=== PATIENT | male | born 1985 | race Caucasian/White ===

== ENCOUNTER → 2016-11-16 | Outpatient (CLI) | payer OTHER | END | disposition home or self-care (01) | LOC: CFH 15:25 | PROVIDERS: ATTEND Family Medicine | DX: M51.37 Other intervertebral disc degeneration, lumbosacral region (principal); M41.85 Other forms of scoliosis, thoracolumbar region; M47.897 Other spondylosis, lumbosacral region; M54.2 Cervicalgia | CPT/HCPCS: 72040; 72072; 72100 ==

== ENCOUNTER → 2018-02-16 | Outpatient (CLI) | payer OTHER ==
[~2018-02-16] MED LIST: CEFAZOLIN 1,000 MG ONE; DEXAMETHASONE 4 MG/ML, 1ML ONE; DEXL60CA2 PO; FENTANYL PF 100 MCG/2ML ONE; OMEP-110 PO; ONDANSETRON 2MG/ML, 2ML ONE; PROPOFOL 10 MG/ML, 20ML ONE
== END | disposition home or self-care (01) ==
LOC: STAR 13:53
PROVIDERS: ATTEND Internal Medicine
DX: Z02.9 Encounter for administrative examinations, unspecified (principal)

== ENCOUNTER 2018-02-21 07:57 | Day surgery (SDC) | payer OTHER ==
[~2018-02-21] VITALS: Ht 175.3 cm; Wt 98.3 kg
[~2018-02-21 07:57] MED LIST changes: -CEFAZOLIN 1,000 MG ONE; -DEXAMETHASONE 4 MG/ML, 1ML ONE; -FENTANYL PF 100 MCG/2ML ONE; -OMEP-110 PO; -ONDANSETRON 2MG/ML, 2ML ONE; -PROPOFOL 10 MG/ML, 20ML ONE
[2018-02-21 08:16] VITALS: BP 121/76
[2018-02-21] MEDS ORDERED: OMEP-110 PO (08:20)
[2018-02-21] MEDS ORDERED: LACTATED RINGERS 1,000 ML IV SCH (08:20)
[2018-02-21] MEDS ORDERED: ONDANSETRON 2MG/ML, 2ML ONE (08:52)
[2018-02-21] MEDS ORDERED: PROPOFOL 10 MG/ML, 20ML ONE (08:52)
[2018-02-21] MEDS ORDERED: DEXAMETHASONE 4 MG/ML, 1ML ONE (08:52)
[2018-02-21] MEDS ORDERED: hydrALAzine 20 MG/ML, 1ML IV PRN (09:30)
[2018-02-21] MEDS ORDERED: HYDROmorphone 1 MG/ML, 1ML IV PRN (09:30)
[2018-02-21] MEDS ORDERED: LABETALOL 5MG/ML, 20ML IV PRN (09:30)
[2018-02-21] MEDS ORDERED: FENTANYL PF 100 MCG/2ML IV PRN (09:30)
[2018-02-21] MEDS ORDERED: OXYcodone 5 MG/5 ML ORAL.SOL UDC PO PRN (09:30)
[2018-02-21] MEDS ORDERED: ONDANSETRON 2MG/ML, 2ML IV PRN (09:30)
[2018-02-21] MEDS ORDERED: ACETAMINOPHEN 325 MG TABLET PO PRN (09:30)
[2018-02-21] MEDS ORDERED: ACETAMINOPHEN 650 MG/20.3 ML UDC ONE (10:13)
== END 2018-02-21 11:37 | disposition home or self-care (01) ==
LOC: OUT 07:57
PROVIDERS: ATTEND Internal Medicine
DX: C15.5 Malignant neoplasm of lower third of esophagus (principal); K22.711 Barrett's esophagus with high grade dysplasia; K44.9 Diaphragmatic hernia without obstruction or gangrene; K29.70 Gastritis, unspecified, without bleeding; K21.9 Gastro-esophageal reflux disease without esophagitis; M51.36 Other intervertebral disc degeneration, lumbar region; Z87.891 Personal history of nicotine dependence; Z87.39 Personal history of other diseases of the musculoskeletal system and connective tissue; Z79.899 Other long term (current) drug therapy; Z98.890 Other specified postprocedural states
CPT/HCPCS: 43239; 43270; 88305; J1100; J2405; J2704; J3010; J7120; J0690

== ENCOUNTER → 2018-03-06 | Outpatient (CLI) | payer OTHER ==
[~2018-03-06] VITALS: Ht 175.3 cm; Wt 96.8 kg
[~2018-03-06] MED LIST changes: +ACETAMINOPHEN 325 MG TABLET PO PRN; +ALBUTEROL SULFATE 2.5 MG/3 ML NPPB PRN; +DEXAMETHASONE 4 MG/ML, 1ML ONE; +EPHEDRINE 50 MG/ML, 1ML IVPush PRN; +FENTANYL PF 100 MCG/2ML IV PRN; +FENTANYL PF 100 MCG/2ML ONE; +LABETALOL 5MG/ML, 20ML IV PRN; +LACTATED RINGERS 1,000 ML IV SCH; +LIDOCAINE-MPF 1%, 2ML INFIL ONE; +MEPERIDINE/PF 25MG/0.5ML IVPush PRN; +METOPROLOL 1 MG/ML, 5ML IV PRN; +OMEP-110 PO; +ONDANSETRON 2MG/ML, 2ML IV PRN; +ONDANSETRON 2MG/ML, 2ML ONE; +OXYcodone 5 MG/5 ML ORAL.SOL UDC PO PRN; +PROPOFOL 10 MG/ML, 20ML ONE; +SUCCINYLCHOLINE 20 MG/ML, 10ML ONE; +hydrALAzine 20 MG/ML, 1ML IV PRN
[2018-03-06 12:16] VITALS: BP 117/81
== END | disposition home or self-care (01) ==
LOC: CLISVCS 09:00 → OUT 11:09 → EDSTATUS 15:00
PROVIDERS: ATTEND Internal Medicine
DX: C15.9 Malignant neoplasm of esophagus, unspecified (principal); Z53.8 Procedure and treatment not carried out for other reasons; K21.9 Gastro-esophageal reflux disease without esophagitis; Z98.890 Other specified postprocedural states; Z83.3 Family history of diabetes mellitus; Z87.891 Personal history of nicotine dependence
CPT/HCPCS: J1100; J2405; J2704; J3010; J0330; J7120

== ENCOUNTER → 2018-03-27 | Outpatient (CLI) | payer OTHER ==
[~2018-03-27] MED LIST changes: -ACETAMINOPHEN 325 MG TABLET PO PRN; -ALBUTEROL SULFATE 2.5 MG/3 ML NPPB PRN; -DEXAMETHASONE 4 MG/ML, 1ML ONE; -EPHEDRINE 50 MG/ML, 1ML IVPush PRN; -FENTANYL PF 100 MCG/2ML IV PRN; -FENTANYL PF 100 MCG/2ML ONE; -LABETALOL 5MG/ML, 20ML IV PRN; -LACTATED RINGERS 1,000 ML IV SCH; -LIDOCAINE-MPF 1%, 2ML INFIL ONE; -MEPERIDINE/PF 25MG/0.5ML IVPush PRN; -METOPROLOL 1 MG/ML, 5ML IV PRN; +OMNIPAQUE 350 MG/ML, 100ML BOTTLE ONE; -ONDANSETRON 2MG/ML, 2ML IV PRN; -ONDANSETRON 2MG/ML, 2ML ONE; -OXYcodone 5 MG/5 ML ORAL.SOL UDC PO PRN; -PROPOFOL 10 MG/ML, 20ML ONE; -SUCCINYLCHOLINE 20 MG/ML, 10ML ONE; -hydrALAzine 20 MG/ML, 1ML IV PRN
== END | disposition home or self-care (01) ==
LOC: CFH 11:59
PROVIDERS: ATTEND Nurse Practitioner Family
DX: R91.1 Solitary pulmonary nodule (principal); C15.9 Malignant neoplasm of esophagus, unspecified; Z87.891 Personal history of nicotine dependence
CPT/HCPCS: 71260; 74177; Q9967

== ENCOUNTER → 2018-04-11 | Outpatient (CLI) | payer OTHER ==
[~2018-04-11] MED LIST changes: -OMNIPAQUE 350 MG/ML, 100ML BOTTLE ONE
== END | disposition home or self-care (01) ==
LOC: STAR 10:35
PROVIDERS: ATTEND Internal Medicine
DX: Z02.9 Encounter for administrative examinations, unspecified (principal)

== ENCOUNTER 2018-04-17 05:34 | Day surgery (SDC) | payer OTHER ==
[~2018-04-17] VITALS: Ht 175.3 cm; Wt 97.2 kg
[2018-04-17] MEDS ORDERED: LACTATED RINGERS 1,000 ML IV SCH (06:13)
[2018-04-17 06:14] VITALS: BP 133/81
[2018-04-17] MEDS ORDERED: FENTANYL PF 100 MCG/2ML ONE (07:13)
[2018-04-17] MEDS ORDERED: MIDAZOLAM 1 MG/ML, 2ML ONE (07:13)
[2018-04-17] MEDS ORDERED: PROPOFOL 10 MG/ML, 20ML ONE (07:14)
[2018-04-17] MEDS ORDERED: ONDANSETRON 2MG/ML, 2ML ONE (07:14)
[2018-04-17] MEDS ORDERED: LABETALOL 5MG/ML, 20ML IV PRN (07:30)
[2018-04-17] MEDS ORDERED: MORPHINE SULFATE 4 MG/ML, 1ML IVPush PRN (07:30)
[2018-04-17] MEDS ORDERED: ACETAMINOPHEN 325 MG TABLET PO PRN (07:30)
[2018-04-17] MEDS ORDERED: EPHEDRINE 50 MG/ML, 1ML IVPush PRN (07:30)
[2018-04-17] MEDS ORDERED: HYDROmorphone 1 MG/ML, 1ML IV PRN (07:30)
[2018-04-17] MEDS ORDERED: ALBUTEROL SULFATE 2.5 MG/3 ML NPPB PRN (07:30)
[2018-04-17] MEDS ORDERED: OXYcodone 5 MG/5 ML ORAL.SOL UDC PO PRN (07:30)
[2018-04-17] MEDS ORDERED: MEPERIDINE/PF 25MG/0.5ML IVPush PRN (07:30)
[2018-04-17] MEDS ORDERED: PROCHLORPERAZINE 5 MG/ML, 2ML IV PRN (07:30)
[2018-04-17] MEDS ORDERED: hydrALAzine 20 MG/ML, 1ML IV PRN (07:30)
[2018-04-17] MEDS ORDERED: FENTANYL PF 100 MCG/2ML IV PRN (07:30)
[2018-04-17] MEDS ORDERED: MIDAZOLAM 1 MG/ML, 2ML IV PRN (07:30)
[2018-04-17] MEDS ORDERED: LORazepam 2 MG/ML, 1ML IVPush PRN (07:30)
[2018-04-17] MEDS ORDERED: METOPROLOL 1 MG/ML, 5ML IV PRN (07:30)
[2018-04-17] MEDS ORDERED: SUCCINYLCHOLINE 20 MG/ML, 10ML ONE (07:52)
[2018-04-17] MEDS ORDERED: EPHEDRINE 50 MG/ML, 1ML ONE (07:52)
[2018-04-17] MEDS ORDERED: DEXAMETHASONE 4 MG/ML, 1ML ONE (07:52)
== END 2018-04-17 10:30 | disposition home or self-care (01) ==
LOC: OUT 05:34
PROVIDERS: ATTEND Internal Medicine
DX: C15.5 Malignant neoplasm of lower third of esophagus (principal); K21.9 Gastro-esophageal reflux disease without esophagitis; K22.70 Barrett's esophagus without dysplasia; Z72.89 Other problems related to lifestyle
CPT/HCPCS: 43238; 88172; 88173; 88177; 88305; J0330; J1100; J2250; J2405; J2704; J3010; J7120

== ENCOUNTER → 2018-05-08 | Outpatient (CLI) | payer OTHER | END | disposition home or self-care (01) | LOC: ROC 07:57 | PROVIDERS: ATTEND Radiology Radiation Oncology | DX: C15.9 Malignant neoplasm of esophagus, unspecified (principal) | CPT/HCPCS: 99214; G0463 ==

== ENCOUNTER → 2018-05-11 | Outpatient (CLI) | payer OTHER | END | disposition home or self-care (01) | LOC: PETCFH 09:17 | PROVIDERS: ATTEND Internal Medicine Hematology & Oncology | DX: R91.1 Solitary pulmonary nodule (principal); C15.9 Malignant neoplasm of esophagus, unspecified | CPT/HCPCS: 78815; A9552 ==

== ENCOUNTER 2018-05-16 11:25 | Day surgery (SDC) | payer OTHER ==
[~2018-05-16] VITALS: Ht 175.3 cm; Wt 95.5 kg
[2018-05-16] MEDS ORDERED: SODIUM CHLORIDE 0.9% 1,000 ML IV SCH (11:47)
[2018-05-16 12:00] VITALS: BP 121/73
[2018-05-16] MEDS ORDERED: CEFAZOLIN PMX 1GM/50ML 50 ML IV ONE (12:00)
[2018-05-16] MEDS ORDERED: PLEASE ENTER HEIGHT AND WEIGHT MC SCH (12:00)
[2018-05-16] MEDS ORDERED: CEFAZOLIN PMX 1GM/50ML 50 ML ONE (12:02)
[2018-05-16] MEDS ORDERED: LIDOCAINE/PF 1%, 30ML ONE (12:28)
[2018-05-16] MEDS ORDERED: FLUMAZENIL 0.1 MG/1 ML, 5ML ONE (12:42)
[2018-05-16] MEDS ORDERED: FENTANYL PF 100 MCG/2ML ONE (12:42)
[2018-05-16] MEDS ORDERED: MIDAZOLAM 1 MG/ML, 5ML ONE (12:42)
[2018-05-16] MEDS ORDERED: NALOXONE 1 MG/ML, 2ML ONE (12:43)
== END 2018-05-16 15:30 | disposition home or self-care (01) ==
LOC: OUT 11:25
PROVIDERS: ATTEND Internal Medicine Hematology & Oncology
DX: Z45.2 Encounter for adjustment and management of vascular access device (principal); C15.9 Malignant neoplasm of esophagus, unspecified; K21.9 Gastro-esophageal reflux disease without esophagitis; Z87.891 Personal history of nicotine dependence
CPT/HCPCS: 36561; 76937; 77001; 99156; 99157; C1788; J0690; J1642; J2250; J3010; J3490; J7030; J2310

== ENCOUNTER → 2018-07-09 | Outpatient (CLI) | payer OTHER | END | disposition home or self-care (01) | LOC: EDSTATUS 07-08 12:44 → ROC 07:16 | PROVIDERS: ATTEND Radiology Radiation Oncology | DX: Z08 Encounter for follow-up examination after completed treatment for malignant neoplasm (principal); C15.5 Malignant neoplasm of lower third of esophagus | CPT/HCPCS: 99212; G0463 ==

== ENCOUNTER → 2018-08-03 | Outpatient (CLI) | payer OTHER | END | disposition home or self-care (01) | LOC: PETCFH 09:26 | PROVIDERS: ATTEND Surgery | DX: C15.9 Malignant neoplasm of esophagus, unspecified (principal) | CPT/HCPCS: 78815; A9552 ==

== ENCOUNTER 2018-08-15 06:00 | Inpatient (IN) | payer OTHER ==
[~2018-08-15] VITALS: Ht 175.3 cm; Wt 102.9 kg
[2018-08-15] MEDS ORDERED: LACTATED RINGERS 1,000 ML IV SCH (06:53)
[2018-08-15 06:57] VITALS: BP 135/85
[2018-08-15] MEDS ORDERED: BUPIVACAINE/PF-EPI 0.5% 1:200K ONE (07:13)
[2018-08-15] MEDS ORDERED: MIDAZOLAM 1 MG/ML, 2ML ONE (07:19)
[2018-08-15] MEDS ORDERED: FENTANYL PF 250 MCG/5ML ONE ×2 (07:19→09:21)
[2018-08-15 07:30] LABS: BASOPHILS # (AUTO) 0.03 x10^3/uL (0-0.1); BASOPHILS % (AUTO) 1 % (0-1); EOSINOPHILS % (AUTO) 4 % (1-7); LYMPHOCYTES # (AUTO) 0.68 x10^3/uL (1-3.4); LYMPHOCYTES % (AUTO) 15 % (22-44); MD NO; MEAN CORPUSCULAR HGB CONC 33.4 g/dL (33.2-36.2); MEAN CORPUSCULAR VOLUME 80.8 fL (81-97); MEAN PLATELET VOLUME 8.8 fL (7.4-10.4); MONOCYTES # (AUTO) 0.36 x10^3/uL (0.2-0.8); MONOCYTES % (AUTO) 8 % (2-9); NEUTROPHILS # (AUTO) 3.33 x10^3/uL (1.8-6.8); NEUTROPHILS % (AUTO) 72 % (42-75); PLATELET COUNT 123 x10^3/uL (130-400); RED CELL DISTRIBUTION WIDTH 15.1 % (9.4-14.8)
[2018-08-15] MEDS ORDERED: ONDANSETRON ODT 8 MG PO ONE (07:30)
[2018-08-15] MEDS ORDERED: GABAPENTIN 300 MG CAPSULE PO ONE (07:30)
[2018-08-15] MEDS ORDERED: ACETAMINOPHEN 500 MG TABLET PO ONE (07:30)
[2018-08-15] MEDS ORDERED: INDOCYANINE GREEN 25 MG VIAL ONE (07:32)
[2018-08-15 07:40] LABS: ALANINE AMINOTRANSFERASE 44 U/L (12-78); ALBUMIN 4.1 g/dL (3.4-5.0); ANION GAP 5 mmol/L (5-15); CALCIUM 9.5 mg/dL (8.5-10.1); CHLORIDE 106 mmol/L (98-107); CREATININE 1.03 mg/dL (0.7-1.3)
[2018-08-15 07:42] LABS: ALKALINE PHOSPHATASE 68 U/L (45-117); BILIRUBIN,TOTAL 0.6 mg/dL (0.2-1.0); TOTAL PROTEIN 7.5 g/dL (6.4-8.2)
[2018-08-15] MEDS ORDERED: MEPERIDINE/PF 25MG/0.5ML IVPush PRN (08:30)
[2018-08-15] MEDS ORDERED: HALOPERIDOL 5 MG/ML IV PRN (08:30)
[2018-08-15] MEDS ORDERED: hydrALAzine 20 MG/ML, 1ML IV PRN (08:30)
[2018-08-15] MEDS ORDERED: ONDANSETRON 2MG/ML, 2ML IV PRN (08:30)
[2018-08-15] MEDS ORDERED: LABETALOL 5MG/ML, 20ML IV PRN (08:30)
[2018-08-15] MEDS ORDERED: PROMETHAZINE 25 MG/ML, 1ML IV PRN (08:30)
[2018-08-15] MEDS ORDERED: DIAZEPAM 5 MG/ML, 2ML IVPush PRN (08:30)
[2018-08-15] MEDS ORDERED: CEFAZOLIN 1,000 MG ONE (09:23)
[2018-08-15] MEDS ORDERED: GLYCOPYRROLATE 0.2MG/1ML, 5ML ONE (09:23)
[2018-08-15] MEDS ORDERED: ROCURONIUM 10MG/ML,5ML ONE (09:23)
[2018-08-15] MEDS ORDERED: SUCCINYLCHOLINE 20 MG/ML, 10ML ONE (09:23)
[2018-08-15] MEDS ORDERED: DEXAMETHASONE 4 MG/ML, 1ML ONE (09:23)
[2018-08-15] MEDS ORDERED: NEOSTIGMINE 1 MG/ML, 10ML ONE (09:23)
[2018-08-15] MEDS ORDERED: ONDANSETRON 2MG/ML, 2ML ONE (09:23)
[2018-08-15] MEDS ORDERED: PROPOFOL 10 MG/ML, 20ML ONE (09:23)
[2018-08-15] MEDS ORDERED: SUGAMMADEX 200 MG/2 ML IVPush ONE (09:40)
[2018-08-15] MEDS ORDERED: OXYMETAZOLINE NASAL SPRAY 0.05%, 15ML ONE (09:40)
[2018-08-15] MEDS ORDERED: FENTANYL PF 100 MCG/2ML ONE ×2 (12:39→13:20)
[2018-08-15] MEDS: FENTANYL PF 100 MCG/2ML IV PRN ×2 (13:20→13:30)
[2018-08-15] MEDS ORDERED: HYDROmorphone 2 MG/ML, 1ML ONE (13:20)
[2018-08-15] MEDS ORDERED: KETOROLAC 30 MG/1 ML ONE (13:28)
[2018-08-15] MEDS: HYDROmorphone 2 MG/ML, 1ML IVPush PRN ×2 (13:32→13:40)
[2018-08-15 13:41] LABS: O2 FLOW 3 L/min
[2018-08-15] MEDS: HYDROmorphone PCA 30 MG/30 ML IV PRN (13:41)
[2018-08-15 13:47] LABS: MEAN CORPUSCULAR HEMOGLOBIN 27.5 pg (27.5-34.5); MEAN CORPUSCULAR HGB CONC 34.3 g/dL (33.2-36.2); MEAN CORPUSCULAR VOLUME 80.3 fL (81-97); MEAN PLATELET VOLUME 8.4 fL (7.4-10.4); PLATELET COUNT 140 x10^3/uL (130-400); RED BLOOD COUNT 5.65 x10^6/uL (4.38-5.82); RED CELL DISTRIBUTION WIDTH 15.7 % (9.4-14.8)
[2018-08-15 13:53] LABS: ANION GAP 8 mmol/L (5-15); CALCIUM 8.6 mg/dL (8.5-10.1); CHLORIDE 107 mmol/L (98-107); CREATININE 1.44 mg/dL (0.7-1.3)
[2018-08-15] MEDS ORDERED: KETOROLAC 30 MG/1 ML IVPush PRN (14:00)
[2018-08-15 14:36] LABS: BASOPHILS # (AUTO) 0.01 x10^3/uL (0-0.1); BASOPHILS % (AUTO) 0 % (0-1); EOSINOPHILS # (AUTO) 0.01 x10^3/uL (0-0.4); EOSINOPHILS % (AUTO) 0 % (1-7); LYMPHOCYTES % (AUTO) 3 % (22-44); MD SCAN; MONOCYTES # (AUTO) 0.24 x10^3/uL (0.2-0.8); MONOCYTES % (AUTO) 2 % (2-9); NEUTROPHILS # (AUTO) 10.13 x10^3/uL (1.8-6.8); NEUTROPHILS % (AUTO) 95 % (42-75)
[2018-08-15] MEDS ORDERED: LACTATED RINGERS 500 ML IV PRN (15:30)
[2018-08-15] MEDS: CEFAZOLIN PMX 2GM/50ML 50 ML IVPB SCH ×2 (16:33→23:48)
[2018-08-15] MEDS: POTASSIUM CHLORIDE 20 MEQ in D5%-LACTATED RINGERS 1,000 ML IV SCH (16:34)
[2018-08-15] MEDS: ONDANSETRON 2MG/ML, 2ML IV PRN (19:32)
[2018-08-15] MEDS: SODIUM CHLORIDE FLUSH 10ML SYR IVF SCH (21:00)
[2018-08-15 23:41] VITALS: BP 123/77
[2018-08-15 23:55] VITALS: BP 120/77
[2018-08-16] MEDS: POTASSIUM CHLORIDE 20 MEQ in D5%-LACTATED RINGERS 1,000 ML IV SCH ×3 (02:38→22:57)
[2018-08-16 02:59] VITALS: BP 125/76
[2018-08-16 05:52] LABS: MEAN CORPUSCULAR HEMOGLOBIN 27.7 pg (27.5-34.5); MEAN CORPUSCULAR HGB CONC 33.8 g/dL (33.2-36.2); MEAN CORPUSCULAR VOLUME 81.8 fL (81-97); MEAN PLATELET VOLUME 8.5 fL (7.4-10.4); PLATELET COUNT 119 x10^3/uL (130-400); RED BLOOD COUNT 4.95 x10^6/uL (4.38-5.82); RED CELL DISTRIBUTION WIDTH 15.7 % (9.4-14.8)
[2018-08-16 06:03] LABS: CALCIUM 8.3 mg/dL (8.5-10.1); CHLORIDE 106 mmol/L (98-107)
[2018-08-16 06:06] LABS: ANION GAP 7 mmol/L (5-15); CREATININE 1.17 mg/dL (0.7-1.3)
[2018-08-16 06:16] LABS: BASOPHILS % (AUTO) 0 % (0-1); EOSINOPHILS # (AUTO) 0.01 x10^3/uL (0-0.4); EOSINOPHILS % (AUTO) 0 % (1-7); LYMPHOCYTES # (AUTO) 0.48 x10^3/uL (1-3.4); LYMPHOCYTES % (AUTO) 7 % (22-44); MD SCAN; MONOCYTES # (AUTO) 0.56 x10^3/uL (0.2-0.8); MONOCYTES % (AUTO) 8 % (2-9); NEUTROPHILS # (AUTO) 6.03 x10^3/uL (1.8-6.8); NEUTROPHILS % (AUTO) 85 % (42-75)
[2018-08-16] MEDS: ENOXAPARIN 40 MG/0.4 ML SQ SCH (08:46)
[2018-08-16] MEDS: SODIUM CHLORIDE FLUSH 10ML SYR IVF SCH ×2 (08:47→22:57)
[2018-08-16 09:37] VITALS: BP 119/75
[2018-08-16 15:03] VITALS: BP 120/75
--- NOTE | 2018-08-16 15:45 | NUR ---
TF GOAL: JEVITY 1.2 @ 80ML/HR VIA JTUBE fluid needs: additional 1200ml water via flushes when ivf's have been d/c'd
[2018-08-16 19:10] VITALS: BP 113/71
[2018-08-16] MEDS ORDERED: LORazepam 2 MG/ML, 1ML ONE (23:47)
[2018-08-16] MEDS: LORazepam 2 MG/ML, 1ML IVPush PRN (23:59)
[2018-08-17 01:12] VITALS: BP 118/75
[2018-08-17] MEDS: HYDROmorphone PCA 30 MG/30 ML IV PRN (05:47)
[2018-08-17] MEDS: LORazepam 2 MG/ML, 1ML IVPush PRN ×3 (05:58→21:02)
[2018-08-17 06:00] LABS: BASOPHILS % (AUTO) 0 % (0-1); EOSINOPHILS % (AUTO) 2 % (1-7); LYMPHOCYTES # (AUTO) 0.46 x10^3/uL (1-3.4); LYMPHOCYTES % (AUTO) 7 % (22-44); MD NO; MEAN CORPUSCULAR HEMOGLOBIN 27.4 pg (27.5-34.5); MEAN CORPUSCULAR HGB CONC 33.1 g/dL (33.2-36.2); MEAN CORPUSCULAR VOLUME 82.6 fL (81-97); MEAN PLATELET VOLUME 8.4 fL (7.4-10.4); MONOCYTES # (AUTO) 0.56 x10^3/uL (0.2-0.8); MONOCYTES % (AUTO) 9 % (2-9); NEUTROPHILS # (AUTO) 5.19 x10^3/uL (1.8-6.8); NEUTROPHILS % (AUTO) 82 % (42-75); PLATELET COUNT 106 x10^3/uL (130-400); RED BLOOD COUNT 4.88 x10^6/uL (4.38-5.82); RED CELL DISTRIBUTION WIDTH 15.3 % (9.4-14.8)
[2018-08-17 06:12] LABS: CALCIUM 8.6 mg/dL (8.5-10.1); CHLORIDE 105 mmol/L (98-107)
[2018-08-17 06:15] LABS: ALANINE AMINOTRANSFERASE 85 U/L (12-78); ALKALINE PHOSPHATASE 48 U/L (45-117); CREATININE 1.22 mg/dL (0.7-1.3); TOTAL PROTEIN 6.4 g/dL (6.4-8.2)
[2018-08-17 06:40] LABS: ANION GAP 6 mmol/L (5-15)
[2018-08-17 06:56] VITALS: BP 127/77
[2018-08-17] MEDS: SODIUM CHLORIDE FLUSH 10ML SYR IVF SCH ×2 (08:43→20:47)
[2018-08-17] MEDS: ENOXAPARIN 40 MG/0.4 ML SQ SCH (08:43)
[2018-08-17] MEDS: POTASSIUM CHLORIDE 20 MEQ in D5%-LACTATED RINGERS 1,000 ML IV SCH ×2 (08:43→18:33)
[2018-08-17 14:30] VITALS: BP 108/68
[2018-08-17 20:00] VITALS: BP 111/68
[2018-08-18 00:05] VITALS: BP 117/73
[2018-08-18] MEDS: POTASSIUM CHLORIDE 20 MEQ in D5%-LACTATED RINGERS 1,000 ML IV SCH ×2 (03:41→13:54)
[2018-08-18 05:25] LABS: BASOPHILS # (AUTO) 0.02 x10^3/uL (0-0.1); BASOPHILS % (AUTO) 0 % (0-1); EOSINOPHILS # (AUTO) 0.11 x10^3/uL (0-0.4); EOSINOPHILS % (AUTO) 2 % (1-7); LYMPHOCYTES # (AUTO) 0.41 x10^3/uL (1-3.4); LYMPHOCYTES % (AUTO) 7 % (22-44); MD NO; MEAN CORPUSCULAR HEMOGLOBIN 27.8 pg (27.5-34.5); MEAN CORPUSCULAR HGB CONC 33.8 g/dL (33.2-36.2); MEAN CORPUSCULAR VOLUME 82.4 fL (81-97); MEAN PLATELET VOLUME 8.4 fL (7.4-10.4); MONOCYTES # (AUTO) 0.55 x10^3/uL (0.2-0.8); MONOCYTES % (AUTO) 9 % (2-9); NEUTROPHILS # (AUTO) 5.19 x10^3/uL (1.8-6.8); NEUTROPHILS % (AUTO) 83 % (42-75); PLATELET COUNT 111 x10^3/uL (130-400); RED CELL DISTRIBUTION WIDTH 14.7 % (9.4-14.8)
[2018-08-18 05:31] LABS: ALANINE AMINOTRANSFERASE 61 U/L (12-78); ALBUMIN 2.8 g/dL (3.4-5.0); ANION GAP 5 mmol/L (5-15); CALCIUM 8.7 mg/dL (8.5-10.1); CHLORIDE 105 mmol/L (98-107); CREATININE 1.05 mg/dL (0.7-1.3)
[2018-08-18 05:33] LABS: ALKALINE PHOSPHATASE 63 U/L (45-117); BILIRUBIN,TOTAL 0.8 mg/dL (0.2-1.0); TOTAL PROTEIN 6.3 g/dL (6.4-8.2)
[2018-08-18] MEDS ORDERED: BENZOCAINE AEROSOL SPRAY 20%, 60ML TP ONE (06:00)
[2018-08-18 07:40] VITALS: BP 134/74
[2018-08-18] MEDS: SODIUM CHLORIDE FLUSH 10ML SYR IVF SCH ×2 (08:46→22:12)
[2018-08-18] MEDS: ENOXAPARIN 40 MG/0.4 ML SQ SCH (08:46)
[2018-08-18 13:38] VITALS: BP 119/75
[2018-08-18 19:03] VITALS: BP 129/83
[2018-08-18] MEDS: QUETIAPINE 25MG TABLET JT SCH (22:12)
[2018-08-18] MEDS ORDERED: BENZOCAINE AEROSOL SPRAY 20%, 60ML TP PRN ×2 (23:30)
[2018-08-19 00:58] VITALS: BP 124/76
[2018-08-19] MEDS: POTASSIUM CHLORIDE 20 MEQ in D5%-LACTATED RINGERS 1,000 ML IV SCH (01:34)
[2018-08-19] MEDS: HYDROmorphone PCA 30 MG/30 ML IV PRN (02:27)
[2018-08-19] MEDS: ONDANSETRON 2MG/ML, 2ML IV PRN (05:10)
[2018-08-19 05:38] LABS: BASOPHILS # (AUTO) 0.06 x10^3/uL (0-0.1); BASOPHILS % (AUTO) 1 % (0-1); EOSINOPHILS % (AUTO) 4 % (1-7); LYMPHOCYTES # (AUTO) 0.39 x10^3/uL (1-3.4); LYMPHOCYTES % (AUTO) 7 % (22-44); MD NO; MEAN CORPUSCULAR HEMOGLOBIN 27.8 pg (27.5-34.5); MEAN CORPUSCULAR VOLUME 81.8 fL (81-97); MEAN PLATELET VOLUME 8.2 fL (7.4-10.4); MONOCYTES # (AUTO) 0.55 x10^3/uL (0.2-0.8); MONOCYTES % (AUTO) 10 % (2-9); NEUTROPHILS # (AUTO) 4.47 x10^3/uL (1.8-6.8); NEUTROPHILS % (AUTO) 79 % (42-75); PLATELET COUNT 115 x10^3/uL (130-400); RED BLOOD COUNT 4.44 x10^6/uL (4.38-5.82); RED CELL DISTRIBUTION WIDTH 14.1 % (9.4-14.8)
[2018-08-19 06:01] LABS: ALANINE AMINOTRANSFERASE 57 U/L (12-78); ALBUMIN 2.7 g/dL (3.4-5.0); ANION GAP 5 mmol/L (5-15); CALCIUM 8.4 mg/dL (8.5-10.1); CHLORIDE 105 mmol/L (98-107)
[2018-08-19 06:03] LABS: ALKALINE PHOSPHATASE 78 U/L (45-117); CREATININE 0.93 mg/dL (0.7-1.3); TOTAL PROTEIN 6.6 g/dL (6.4-8.2)
[2018-08-19] MEDS: SODIUM CHLORIDE FLUSH 10ML SYR IVF SCH ×2 (07:23→22:20)
[2018-08-19] MEDS: ENOXAPARIN 40 MG/0.4 ML SQ SCH (07:23)
[2018-08-19 07:54] VITALS: BP 110/69
[2018-08-19 13:10] VITALS: BP 110/70
[2018-08-19] MEDS: ALBUTEROL/IPRATROPIUM 2.5MG/0.5MG, 3 ML HHN SCH ×3 (16:15→19:59)
[2018-08-19 19:21] VITALS: BP 110/73
[2018-08-19] MEDS: QUETIAPINE 25MG TABLET JT SCH (22:19)
[2018-08-20] MEDS: POTASSIUM CHLORIDE 20 MEQ in D5%-LACTATED RINGERS 1,000 ML IV SCH (00:40)
[2018-08-20] MEDS: ALBUTEROL/IPRATROPIUM 2.5MG/0.5MG, 3 ML HHN SCH ×2 (02:09→06:48)
[2018-08-20 03:48] VITALS: BP 107/61
[2018-08-20 07:38] VITALS: BP 112/67
[2018-08-20 07:41] LABS: MEAN CORPUSCULAR HEMOGLOBIN 27.2 pg (27.5-34.5); MEAN CORPUSCULAR HGB CONC 33.1 g/dL (33.2-36.2); MEAN CORPUSCULAR VOLUME 82.2 fL (81-97); MEAN PLATELET VOLUME 7.8 fL (7.4-10.4); PLATELET COUNT 130 x10^3/uL (130-400); RED BLOOD COUNT 4.38 x10^6/uL (4.38-5.82); RED CELL DISTRIBUTION WIDTH 14.3 % (9.4-14.8)
[2018-08-20 07:43] LABS: ALANINE AMINOTRANSFERASE 59 U/L (12-78); ALBUMIN 2.7 g/dL (3.4-5.0); ANION GAP 5 mmol/L (5-15); CALCIUM 8.2 mg/dL (8.5-10.1); CHLORIDE 104 mmol/L (98-107); CREATININE 0.96 mg/dL (0.7-1.3)
[2018-08-20 07:45] LABS: ALKALINE PHOSPHATASE 97 U/L (45-117); BILIRUBIN,TOTAL 0.6 mg/dL (0.2-1.0); TOTAL PROTEIN 6.5 g/dL (6.4-8.2)
[2018-08-20 08:30] LABS: MD YES
[2018-08-20 08:32] LABS: <PLATELET ESTIMATE> ADEQUATE; <PLT MORPHOLOGY> NORMAL PLT MORPH; <RBC MORPHOLOGY> NORMAL; BAND#(MANUAL) 0.04 x10^3/uL; BANDS%(MANUAL) 1 % (0-7); EOS#(MANUAL) 0.14 x10^3/uL (0.0-0.4); EOS% (MANUAL) 4 % (1-7); LYMPH#(MANUAL) 0.47 x10^3/uL (1-3.4); LYMPHS% (MANUAL) 13 % (22-44); MONOS% (MANUAL) 11 % (2-9); SEG#(MANUAL) 2.56 x10^3/uL (1.8-6.8); SEGS% (MANUAL) 71 % (42-75)
[2018-08-20] MEDS: SODIUM CHLORIDE FLUSH 10ML SYR IVF SCH ×2 (08:49→21:00)
[2018-08-20] MEDS: ENOXAPARIN 40 MG/0.4 ML SQ SCH (08:58)
[2018-08-20] MEDS ORDERED: ALBUTEROL/IPRATROPIUM 2.5MG/0.5MG, 3 ML HHN PRN (10:00)
[2018-08-20 14:10] VITALS: BP 106/64
[2018-08-20 19:10] VITALS: BP 116/65
[2018-08-20] MEDS: QUETIAPINE 25MG TABLET JT SCH (22:14)
[2018-08-21] MEDS: POTASSIUM CHLORIDE 20 MEQ in D5%-LACTATED RINGERS 1,000 ML IV SCH (02:00)
[2018-08-21 04:00] VITALS: BP 112/62
[2018-08-21 05:47] LABS: BASOPHILS # (AUTO) 0.03 x10^3/uL (0-0.1); BASOPHILS % (AUTO) 1 % (0-1); EOSINOPHILS # (AUTO) 0.24 x10^3/uL (0-0.4); EOSINOPHILS % (AUTO) 6 % (1-7); LYMPHOCYTES # (AUTO) 0.31 x10^3/uL (1-3.4); LYMPHOCYTES % (AUTO) 8 % (22-44); MD NO; MEAN CORPUSCULAR HEMOGLOBIN 27.7 pg (27.5-34.5); MEAN CORPUSCULAR HGB CONC 34.2 g/dL (33.2-36.2); MEAN PLATELET VOLUME 8.5 fL (7.4-10.4); MONOCYTES # (AUTO) 0.35 x10^3/uL (0.2-0.8); MONOCYTES % (AUTO) 9 % (2-9); NEUTROPHILS % (AUTO) 78 % (42-75); PLATELET COUNT 144 x10^3/uL (130-400); RED BLOOD COUNT 4.36 x10^6/uL (4.38-5.82); RED CELL DISTRIBUTION WIDTH 14.2 % (9.4-14.8)
[2018-08-21 05:52] LABS: ALBUMIN 2.6 g/dL (3.4-5.0); ANION GAP 4 mmol/L (5-15); CALCIUM 8.2 mg/dL (8.5-10.1); CHLORIDE 105 mmol/L (98-107)
[2018-08-21 05:57] LABS: ALANINE AMINOTRANSFERASE 73 U/L (12-78); ALKALINE PHOSPHATASE 116 U/L (45-117); BILIRUBIN,TOTAL 0.6 mg/dL (0.2-1.0); CREATININE 0.91 mg/dL (0.7-1.3); TOTAL PROTEIN 6.4 g/dL (6.4-8.2)
[2018-08-21] MEDS ORDERED: HYDROmorphone PCA 30 MG/30 ML IV PRN (07:30)
[2018-08-21] MEDS ORDERED: OXYcodone ORAL.CONC 20 MG/ML PO PRN (07:30)
[2018-08-21] MEDS ORDERED: ACETAMINOPHEN 325 MG/10.15 ML UDC PO SCH (07:30)
[2018-08-21] MEDS ORDERED: OXYcodone 5 MG/5 ML ORAL.SOL UDC ONE (07:46)
[2018-08-21] MEDS: ACETAMINOPHEN 650 MG/20.3 ML UDC PO SCH ×3 (08:03→21:28)
[2018-08-21] MEDS: ENOXAPARIN 40 MG/0.4 ML SQ SCH (08:04)
[2018-08-21] MEDS: IBUPROFEN 100 MG/5 ML UDC PO SCH ×3 (08:04→16:56)
[2018-08-21] MEDS: SODIUM CHLORIDE FLUSH 10ML SYR IVF SCH ×2 (08:06→20:30)
[2018-08-21 08:50] VITALS: BP 111/71
[2018-08-21 14:05] VITALS: BP 103/64
[2018-08-21 20:16] VITALS: BP 115/77
[2018-08-21] MEDS: QUETIAPINE 25MG TABLET JT SCH (21:28)
[2018-08-22] MEDS: ACETAMINOPHEN 650 MG/20.3 ML UDC PO SCH ×4 (01:53→20:54)
[2018-08-22 01:55] VITALS: BP 107/63
[2018-08-22 08:59] VITALS: BP 124/74
[2018-08-22] MEDS: IBUPROFEN 100 MG/5 ML UDC PO SCH ×3 (09:43→17:28)
[2018-08-22] MEDS: ENOXAPARIN 40 MG/0.4 ML SQ SCH (09:45)
[2018-08-22] MEDS: SODIUM CHLORIDE FLUSH 10ML SYR IVF SCH ×2 (09:46→20:54)
[2018-08-22 15:26] VITALS: BP 120/74
[2018-08-22 20:17] VITALS: BP 124/76
[2018-08-22] MEDS: QUETIAPINE 25MG TABLET JT SCH (20:55)
[2018-08-23] MEDS: ACETAMINOPHEN 650 MG/20.3 ML UDC PO SCH ×2 (02:02→09:16)
[2018-08-23 02:45] VITALS: BP 120/76
[2018-08-23 08:37] VITALS: BP 124/76
[2018-08-23] MEDS: IBUPROFEN 100 MG/5 ML UDC PO SCH ×2 (09:16→13:58)
[2018-08-23] MEDS ORDERED: ACET500T76 PO (09:16)
[2018-08-23] MEDS ORDERED: IBUP100O26 PO (09:17)
[2018-08-23] MEDS: ENOXAPARIN 40 MG/0.4 ML SQ SCH (09:17)
[2018-08-23] MEDS: SODIUM CHLORIDE FLUSH 10ML SYR IVF SCH (09:17)
[2018-08-23] MEDS ORDERED: OXYC5SOL8 PO (09:19)
--- NOTE | 2018-08-23 10:27 | NUR ---
08/23-Daytime full liquid diet plus nocturnal tf: JEVITY 1.2 (or equivalent) @ 90ml/hr x 12hr at night via Jtube Flush jtube with water to maintain patency
[2018-08-23 12:46] VITALS: BP 122/70
== END 2018-08-23 14:43 | disposition home or self-care (01) | DRG 989 ==
LOC: ORIP 06:00 → 4EST 12:43 → 4NOR 14:35 → DCLOUNGE 08-23 14:26
PROVIDERS: ADMIT Surgery; ATTEND Surgery
PROC: 07B74ZX Excision of Thorax Lymphatic, Percutaneous Endoscopic Approach, Diagnostic (ICD-10-PCS; 2018-08-15)
PROC: 0DB34ZZ Excision of Lower Esophagus, Percutaneous Endoscopic Approach (ICD-10-PCS; 2018-08-15)
PROC: 0DHA3UZ Insertion of Feeding Device into Jejunum, Percutaneous Approach (ICD-10-PCS; 2018-08-15)
PROC: 0DB64ZZ Excision of Stomach, Percutaneous Endoscopic Approach (ICD-10-PCS; 2018-08-15)
PROC: 03HY32Z Insertion of Monitoring Device into Upper Artery, Percutaneous Approach (ICD-10-PCS; principal; 2018-08-15 07:30)
PROC: BD11YZZ Fluoroscopy of Esophagus using Other Contrast (ICD-10-PCS; 2018-08-20)
PROC: BD12YZZ Fluoroscopy of Stomach using Other Contrast (ICD-10-PCS; 2018-08-20)
DX: C15.5 Malignant neoplasm of lower third of esophagus (principal); K21.9 Gastro-esophageal reflux disease without esophagitis; Z92.21 Personal history of antineoplastic chemotherapy; Z92.3 Personal history of irradiation; Z83.3 Family history of diabetes mellitus; Z87.891 Personal history of nicotine dependence; Z79.899 Other long term (current) drug therapy
CPT/HCPCS: 36415; 36600; 74018; 74220; J3490; J7121; J7620; 71045; 80048; 80053; 82803; 85025; 86850; 86900; 88305; 88309; 93005; 94640; B4087; C1729; G0378; J0690; J1100; J1170; J1650; J1885; J2250; J2405; J2704; J2710; J3010; J3480; J0330; J2060; J7120

== ENCOUNTER → 2018-08-30 | Outpatient (CLI) | payer OTHER ==
[~2018-08-30] MED LIST changes: +ACET500T76 PO; +IBUP100O26 PO; +OXYC5SOL8 PO
== END | disposition home or self-care (01) ==
LOC: EDSTATUS 07-11 09:57 → ROC 08:10
PROVIDERS: ATTEND Radiology Radiation Oncology
DX: C15.5 Malignant neoplasm of lower third of esophagus (principal)
CPT/HCPCS: 99213; G0463

== ENCOUNTER → 2018-08-31 | Outpatient (CLI) | payer OTHER | END | disposition home or self-care (01) | LOC: CFH 11:50 | PROVIDERS: ATTEND Radiology Radiation Oncology | DX: C15.5 Malignant neoplasm of lower third of esophagus (principal); R05 Cough; J98.4 Other disorders of lung | CPT/HCPCS: 71250 ==